=== PATIENT | female | born 1975 | race Caucasian/White ===

== ENCOUNTER 2021-09-17 17:53 | Emergency (ER) | payer SELFPAY ==
[2021-09-17 17:56] VITALS: BP 146/93; PULSE 95; RESP 20; TEMP 36.7; O2SAT 100
--- NOTE | 2021-09-17 20:16 | PC.NURSE ---
tried to get vitals on pt at 2017 and pt was no where to be found
--- NOTE | 2021-09-17 21:31 | PC.NURSE ---
Pt called for room at this time. No answer.
--- NOTE | 2021-09-17 22:33 | PC.NURSE ---
no answer to be seen by provider
--- NOTE | 2021-09-17 22:34 | PC.NURSE ---
Called at this time for room, no answer.
== END 2021-09-18 03:18 | disposition left against medical advice (07) ==
LOC: ANHED 22:39
PROVIDERS: PCP Family Medicine
DX: Z53.21 Procedure and treatment not carried out due to patient leaving prior to being seen by health care provider (principal)
CPT/HCPCS: 99199

== ENCOUNTER 2022-10-06 22:03 | Emergency (ER) | payer BC, SELFPAY ==
[2022-10-06 22:08] VITALS: BP 130/98; PULSE 120; RESP 18; TEMP 36.4; O2SAT 99
--- NOTE | 2022-10-07 01:07 | ED.GENADULT ---
HPI - General Adult General Chief complaint: Skin/Abscess/Foreign Body Stated complaint: in PD custody - contraband search Time Seen by Provider: 10/06/22 22:55 Source: patient and police Mode of arrival: other (police) Limitations: no limitations History of Present Illness HPI narrative: Patient is a 47-year-old female who presented to the ED under police custody for cavity search d/t concern for possible foreign body in vagina. Per PD at bedside, patient was found at a gas station [facility] and arrested for an outstanding warrant. Patient allegedly had a plastic cylindrical shaped tube that she was allegedly hiding in the front of her pants. Police tried to obtain the tube but were unable to. Patient initially reported it was a tampon. On the way to [facility], the patient slipped out of her handcuffs in the backseat. It is unclear if she moved the tube or not, but when she was being checked in at the [facility], the tube fell out of her pants and was empty. The [facility] would not accept her for intake as they were concerned there could be a foreign body in the patient's vagina. Patient was then brought here. A search warrant was obtained to perform a pelvic exam to rule out foreign body. Patient reports that she was at the gas station with her friend chika and had a small amount of weed in the plastic tube. She did not want her friend to know that she had the weed with her. She states that she dumped the weed contents of the tube onto the ground outside her car prior to her encounter with the police. She states she was nervous when the police confronted her and that is why she attempted to hide the tube in her pants. She denies ingesting anything or placing anything in her body cavities. She does admit to a remote history of illicit substance use in the early , including cocaine, meth, acid, MDMA, but denies any recent use. She does occasionally smoke cigarettes. Reports very occasional EtOH use. Patient denies any acute complaints. Review of Systems Review of Systems: CONSTITUTIONAL: Denies fever, chills, or sweats. CARDIOVASCULAR: Denies chest pain, palpitations, or edema. RESPIRATORY: Denies cough or dyspnea. GASTROINTESTINAL: Denies abdominal pain, nausea, vomiting, or diarrhea. MUSCULOSKELETAL: Denies back pain, joint pain, or myalgia. NEUROLOGIC: Denies headache, numbness, or weakness. All systems reviewed & are unremarkable except as noted in HPI and below PMFSH Past Medical History Medical History (Updated 10/07/22 @ 02:30 by Tressa Fitzgerald PA-C) No pertinent past medical history Surgical History Surgical History (Updated 10/07/22 @ 02:30 by Tressa Fitzgerald PA-C) No pertinent past surgical history Social History Social History (Updated 10/07/22 @ 02:31 by Tressa Fitzgerald PA-C) Smoking status: Current some day smoker Tobacco type: cigarettes Alcohol intake: current Alcohol use details: Occasional Substance use: current Other substance usage details: Occasional marijuana use, former substance abuse 10 to 20 years ago Exam Narrative: GENERAL: Well appearing, well-nourished, non-toxic, in no acute distress. HEAD: Normocephalic, atraumatic. NECK: Supple. No adenopathy, no masses. RESPIRATORY: Airway patent, respirations nonlabored. Clear to auscultation bilaterally, no rales, rhonchi, wheezing. CARDIOVASCULAR: Regular rate and rhythm without murmurs, rubs, or gallops. Peripheral pulses 2+ and equal bilaterally. PELVIC: Normal external genitalia. Clitoris piercing. Unremarkable appearing vaginal vault. Normal-appearing cervix. No bleeding or significant discharge. No foreign body, substance residue, powder/pills seen. Minimal CMT tenderness with bimanual exam. No foreign bodies palpated. MUSCULOSKELETAL: Moves all extremities. Strength/ROM intact without gross deformities. SKIN: Warm, dry, normal color. No rashes. NEURO: A&O X3. Speech clear. Cranial nerves II-XII grossly intact.
== END 2022-10-07 01:41 ==
PROVIDERS: Emergency Provider Physician Assistant; PCP Family Medicine
DX: Z02.89 Encounter for other administrative examinations (principal); Z03.823 Encounter for observation for suspected inserted (injected) foreign body ruled out; F17.210 Nicotine dependence, cigarettes, uncomplicated
CPT/HCPCS: 99282